=== PATIENT | male | born 1970 | race Caucasian/White ===

== ENCOUNTER → 2016-06-05 | Outpatient (CLI) | payer BC ==
--- NOTE | 2016-06-05 12:35 | DIAGNOSTIC IMAGING REPORT ---
LEFT KNEE BILATERAL STANDING AP VIEWS (4 VIEWS) CLINICAL HISTORY: Left knee pain COMPARISON: April 2013 DISCUSSION: There are moderate osteoarthritic changes with narrowing of the medial joint compartment. This is not present on the prior 2012 study. There are small dorsal patellar spurs. There are no acute fractures. No destructive lesions are evident. IMPRESSION: Moderate osteoarthritic changes most pronounced involving the medial joint compartment and patellofemoral joint. Electronically signed by: Oscar Otero M.D. 06/05/2016 12:33 PM Dictated Date/Time: 06/05/2016 12:31 PM
== END | disposition home or self-care (01) ==
LOC: C.RDSM 08:55
PROVIDERS: ATTEND Physical Medicine & Rehabilitation Sports Medicine
DX: M25.562 Pain in left knee (principal)

== ENCOUNTER → 2017-08-13 | Outpatient (CLI) | payer BC ==
[~2017-08-13] MED LIST: IBUP-1050 PO; NAPR-1169 PO; OMEP-334 PO
[2017-08-13 13:12] LABS: BASO % 0.8 %; BASO ABS # 0.06 K/uL (0-0.2); EOS ABS # 0.07 K/uL (0-0.5); HEMATOCRIT 43.5 % (42-52); HEMOGLOBIN 15.1 g/dL (14.0-18.0); IG# 0.01 K/uL (0.00-0.02); LYMPH % 23.2 %; LYMPH ABS # 1.67 K/uL (1.2-3.4); MEAN CELL VOLUME 88.2 fL (80-100); MEAN CORPUSCULAR HEMOGLOBIN 30.6 pg (25-34); MEAN CORPUSCULAR HGB CONC 34.7 g/dl (32-36); MEAN PLATELET VOLUME 9.6 fL (7.4-10.4); MONO % 6.1 %; MONO ABS # 0.44 K/uL (0.11-0.59); NEUT % 68.8 %; NEUT ABS # 4.96 K/uL (1.4-6.5); PLATELET COUNT 274 K/uL (130-400); RED CELL DISTRIBUTION WIDTH CV 13.3 % (11.5-14.5); RED CELL DISTRIBUTION WIDTH SD 42.7 fL (36.4-46.3); WHITE BLOOD COUNT 7.21 K/uL (4.8-10.8)
[2017-08-13 14:09] LABS: BLOOD UREA NITROGEN 15 mg/dl (7-18); CALCIUM 9.5 mg/dl (8.5-10.1); CARBON DIOXIDE 25 mmol/L (21-32); CREATININE 0.81 mg/dl (0.60-1.40); GLUCOSE 109 mg/dl (70-99); POTASSIUM 3.8 mmol/L (3.5-5.1); SODIUM 136 mmol/L (136-145)
== END | disposition home or self-care (01) ==
LOC: C.LABBC 11:18
PROVIDERS: ATTEND Orthopaedic Surgery
DX: Z01.812 Encounter for preprocedural laboratory examination (principal); M66.231 Spontaneous rupture of extensor tendons, right forearm

== ENCOUNTER → 2017-09-12 | Day surgery (SDC) | payer OTHER, BC ==
[2017-08-15 15:45] VITALS: Ht 177.8 cm; Wt 113.6 kg
[~2017-09-12] VITALS: Ht 177.8 cm; Wt 113.6 kg
[~2017-09-12] MED LIST changes: +ATROPINE SULFATE 0.1 MG/ML 5ML SYR IV PRN; +BUPIVACAINE 0.25% 30 ML VIAL ONE; +CEFAZOLIN 2000MG IV PUSH 15 ML IV SCH; +DEXAMETHASONE SOD INJ 4 MG/ML VIAL ONE; +EpHEDrine SULFATE INJ 50 MG/ML AMP IV PRN; +EpINEphrine INJ 1MG/ML AMP 1 MG/ML AMP ONE; +FENTANYL CITRATE INJ 50 MCG/1 ML 2 ML VIAL IV PRN; +FENTANYL CITRATE INJ 50 MCG/1 ML 2 ML VIAL ONE; +KETOROLAC TROMETHAMINE 30 MG/ML VIAL IV. PRN; +KETOROLAC TROMETHAMINE 30 MG/ML VIAL ONE; +LACTATED RINGER'S 1000ML 1,000 ML IV SCH; +LIDOCAINE HCL 2% 2 ML VIAL (20MG/ML) ONE; +MIDAZOLAM HCL 1 MG/ML 2ML VIAL ONE; +ONDANSETRON INJ 2 MG/ML 2 ML VIAL IV PRN; +ONDANSETRON INJ 2 MG/ML 2 ML VIAL ONE; +OXYC-57 PO; +OXYCODONE/ACETAMINOPHEN 5-325 TAB ONE; +OXYCODONE/ACETAMINOPHEN 5-325 TAB PO PRN; +PROPOFOL IV EMULSION 10 MG/ML 20 ML VIAL IV ONE; +SCOPOLAMINE 1.5 MG TDSY TD ONE; +SODIUM CHLORIDE 0.9% 1000ML 1,000 ML IV SCH; +SUCCINYLCHOLINE CHLORIDE 20 MG/ML 10 ML VIAL IV ONE
--- NOTE | 2017-09-12 06:44 | History & Physical Bridge - [place] ---
H&P Re-Evaluation Bridge Note: I have examined the patient, reviewed the History & Physical and in the interval since the performance of the History & Physical I have noted the following changes of clinical significance: No changes noted
--- NOTE | 2017-09-12 07:46 | [facility] Post Operative Brief Note ---
Immediate Operative Summary Operative Date Sep 12, 2017. Pre-Operative Diagnosis Right Elbow Spontaneous Rupture Extensor Tendon Post-Operative Diagnosis As above with Lateral Epicondylitis Procedure(s) Performed Right Elbow Extensor Tendon Repair Surgeon Dr. Salas Event Services Manager Surgeon(s) Chau Rodriguez PA-C Estimated Blood Loss 5 ml Findings Consistent with Post-Op Diagnosis Specimens Lateral epicondylitis tissus Drains None Anesthesia Type General Complication(s) none Disposition Disposition: Recovery Room / PACU
--- NOTE | 2017-09-12 08:12 | Discharge Instructions-SurgCtr ---
Discharge Instructions Date of Service Sep 12, 2017. Visit Reason for Visit: Right Elbow Spontaneous Rupture Extensor Tendons Discharge Discharge Diagnosis / Problem: SAME ABOVE Discharge Goals Goal(s): Decrease discomfort, Improve function Activity Recommendations Activity Limitations: as noted below Lifting Limitations: until after follow-up appointment Anesthesia . Post Anesthesia Instructions: If you have had General Anesthesia or IV Sedation: * Do not drive today. * Resume driving when surgeon permits. * Do not make important decisions or sign legal documents today. * Call surgeon for: 1. Temperature elevations greater than 101 degrees F. 2. Uncontrollable pain. 3. Excessive bleeding. 4. Persistent nausea and vomiting. 5. Medication intolerance (nausea, vomiting or rash). * For nausea and vomiting use only clear liquids such as: tea, soda, bouillon until nausea subsides, then gradually increase diet as tolerated. * If you have any concerns or questions, call your surgeon's office. If physician is unavailable and it is an emergency, call 911 or go to the nearest emergency room. . Instructions / Follow-Up Instructions / Follow-Up MEDICATIONS: * Resume previous medications unless instructed otherwise by your surgeon. * Always take pain medication on a full stomach or with food to avoid upset stomach. * Do not drink alcohol or drive while taking narcotics. * Ibuprofen or Tylenol may be taken if narcotic not needed. SPECIAL CARE INSTRUCTIONS: __ None _X_ Keep extremity elevated and iced x 48 hours; apply ice 20-30 minutes 8-10 times/day. May remove at night. __ Sling __24 hrs/day __ Remove at night __ Shoulder Immobilizer __ 24 hrs/day __ Remove at night _X_ Dressing _X_ Maintain until seen in office (THE SPLINT ON THE WRIST) MAY REMOVE THE BANDAGE ON THE ELBOW IN 24 HOURS. THEN COVER WITH BAND -AID AFTER SHOWERING __ Remove dressings in 24-48 hours and then may shower _X_ Cover incisions with band-aids after showering __ Do not remove steri-strips Call physician if chills or temperature rises above 102 degrees or pain unrelieved by prescribed pain medications at . . Diet Recommendations Home Diet: no limitations Fluid Restriction: None Procedures Procedures Performed: Right Elbow Extensor Tendon Repair Pending Studies Studies pending at discharge: no Work Instructions Return To Work: after follow-up Medical Emergencies . Who to Call and When: Medical Emergencies: If at any time you feel your situation is an emergency, please call 911 immediately. . Non-Emergent Contact Non-Emergency issues call your: Primary Care Provider Call Non-Emergent contact if: you have a fever, temperature is above 101.5 . . "Provider Documentation" section prepared by Raji Rodriguez. .
[2017-09-12 09:06] VITALS: TEMP 36.8
--- NOTE | 2017-09-12 09:26 | Anesthesia Progress Nt - [facility] ---
Anesthesia Post Op Note Date & Time Sep 12, 2017 at 09:25 Vital Signs Pain Intensity: 4.0 Vital Signs Past 12 Hours Date Time Temp Pulse Resp B/P (MAP) Pulse Ox O2 Delivery O2 Flow Rate FiO2 09/12/17 09:06 36.8 84 16 135/87 (103) 96 Room Air 09/12/17 08:56 125/94 09/12/17 08:54 36.7 82 16 119/94 97 Room Air 09/12/17 08:53 85 18 09/12/17 08:53 85 18 97 09/12/17 08:51 119/94 09/12/17 08:48 83 13 98 09/12/17 08:48 83 13 09/12/17 08:46 131/87 09/12/17 08:43 89 17 09/12/17 08:43 88 17 98 09/12/17 08:41 124/92 09/12/17 08:38 89 15 100 09/12/17 08:38 90 15 09/12/17 08:36 131/93 09/12/17 08:33 83 15 09/12/17 08:33 82 15 100 09/12/17 08:31 128/96 09/12/17 08:28 87 10 09/12/17 08:28 88 10 100 09/12/17 08:27 88 17 09/12/17 08:27 92 17 97 09/12/17 08:26 128/91 09/12/17 08:22 90 14 09/12/17 08:22 89 14 97 09/12/17 08:21 116/88 09/12/17 08:17 89 16 96 09/12/17 08:17 87 16 09/12/17 08:16 116/86 09/12/17 08:12 89 10 09/12/17 08:12 89 10 118/84 95 09/12/17 08:12 36.4 88 16 118/84 98 Diffusion Mask 10 09/12/17 06:28 36.6 92 16 136/96 (109) 97 Room Air Notes Mental Status: alert / awake / arousable, participated in evaluation Pt Amnestic to Procedure: Yes Nausea / Vomiting: adequately controlled Pain: adequately controlled Airway Patency, RR, SpO2: stable & adequate BP & HR: stable & adequate Hydration State: stable & adequate Anesthetic Complications: no major complications apparent
[2017-09-12 09:32] VITALS: BP 132/92; PULSE 82; O2SAT 95
--- NOTE | 2017-09-12 18:38 | OPERATIVE REPORT ---
DATE OF OPERATION: 09/12/2017 PREOPERATIVE DIAGNOSIS: Common extensor tendon tear of the right elbow. POSTOPERATIVE DIAGNOSES: Common extensor tendon tear of the right elbow with signs of lateral epicondylitis. PROCEDURE: Right elbow extensor tendon repair with a Nirschl procedure. SURGEON: Dr. Jim Salas. PARATRANSIT DRIVER: Ben Rodriguez PA-C whose assistance was necessary for retraction and closure. ANESTHESIA: General. COMPLICATIONS: None. CONDITION: Stable to PACU. INDICATIONS: Jonathan is a pleasant 47-year-old male who works for [employer]. He had a hyperextension injury to his elbow in May 2017. MRI and clinical examination were diagnostic for a small rupture of the common extensor tendons of the elbow. DESCRIPTION OF PROCEDURE: On 09/12/2017 he arrived at [facility] for the above procedure. He was seen in the preop holding area and operative extremity was identified and signed. He was given a preoperative antibiotic and taken back to operating room, laid on the table in supine position and put under general anesthesia. The right elbow was then prepped and draped in sterile fashion. Time-out was done and the patient's operative extremity was properly identified. A curvilinear incision was made just anterior to lateral epicondyle. Dissection was taken down through the fascia and the common extensor tendon was exposed. An incision was made between the extensor digitorum comminus and the brachioradialis. There was an area of fibroblastic appearing tissue during the insertion of the extensor carpi radialis brevis. A sharp clamp was used to resect this tissue. Tissue sent to lab. A small lateral epicondylectomy was done. There appeared to be a tear of the extensor digitorum comminus off the lateral epicondyle. An Arthrex SutureTak was used to reattach the extensor digitorum communis. An additional SutureTak was also used to repair back down the extensor digitorum longus and brevis. The interval between the extensor digitorum comminus and the brachioradialis was closed with 0 Vicryl suture. The wound was then closed with 2-0 Vicryl and 4-0 nylon. He was then placed in a soft elbow dressing and a right wrist splint. He was then extubated, transferred to a [facility] and taken to the postanesthesia care unit in stable condition. He tolerated the procedure well. I attest to the content of the Intraoperative Record and any orders documented therein. Any exception s are noted below.
== END | disposition home or self-care (01) ==
LOC: X.SURG 06:13
PROVIDERS: ATTEND Orthopaedic Surgery
DX: M66.821 Spontaneous rupture of other tendons, right upper arm (principal); M77.11 Lateral epicondylitis, right elbow; G47.30 Sleep apnea, unspecified; Z83.3 Family history of diabetes mellitus